=== PATIENT | female | born 1965 | race Caucasian/White ===

== ENCOUNTER 2023-05-09 12:05 | Outpatient (RCR) | payer BC, SELFPAY | END 2023-05-09 23:59 | disposition home or self-care (01) | LOC: RPT 12:05 | PROVIDERS: ATTENDING PHYSICIAN Internal Medicine Hematology & Oncology; FAMILY PHYSICIAN Neurological Surgery | DX: I97.2 Postmastectomy lymphedema syndrome (principal); C50.512 Malignant neoplasm of lower-outer quadrant of left female breast; Z79.811 Long term (current) use of aromatase inhibitors; Z73.6 Limitation of activities due to disability | CPT/HCPCS: 97140; 97535 ==

== ENCOUNTER → 2023-05-09 17:52 | Outpatient (REF) | payer BC, SELFPAY | LOC: RAD 17:52 | PROVIDERS: ATTENDING PHYSICIAN Internal Medicine Cardiovascular Disease; FAMILY PHYSICIAN Family Medicine | DX: R06.09 Other forms of dyspnea (principal); M79.89 Other specified soft tissue disorders | CPT/HCPCS: 93970 ==

== ENCOUNTER → 2023-05-10 12:12 | Outpatient (REF) | payer BC, OTHER, SELFPAY | LOC: RAD 12:12 | PROVIDERS: ATTENDING PHYSICIAN Internal Medicine Cardiovascular Disease; FAMILY PHYSICIAN Family Medicine | DX: R06.09 Other forms of dyspnea (principal); M79.89 Other specified soft tissue disorders | CPT/HCPCS: 71275; Q9967 ==

== ENCOUNTER 2023-05-15 07:25 | Day surgery (SDC) | payer BC, OTHER, SELFPAY ==
[2023-05-15] VITALS (10 sets, daily range): BP systolic 113–132; BP diastolic 58–75; BMI 27.7
[2023-05-15 07:59] LABS: Hematocrit 39.2 % (37.0-47.0); Hemoglobin 13.5 g/dL (12.0-16.0); Mean Corp Hgb Conc. 34.4 g/dL (33.0-37.0); Mean Corpuscular Hgb 30.7 pg (27.0-31.0); Mean Corpuscular Volume 89.1 fL (81.0-99.0); Mean Platelet Volume 8.7 fL (7.4-10.4); Platelet Count 173 10^3/uL (130-400); White Blood Cell Count 4.7 10^3/uL (4.8-10.8)
[2023-05-15] MEDS: NSS 219 ML IV (08:03)
[2023-05-15 08:16] LABS: ALT (SGPT) 24 U/L (0-35); AST (SGOT) 22 U/L (14-36); Albumin 4.5 g/dl (3.5-5.0); Alkaline Phosphatase 115 U/L (38-126); Blood Urea Nitrogen 24 mg/dl (7-17); Calcium 9.7 mg/dl (8.4-10.2); Carbon Dioxide 25 mmol/L (22-30); Chloride 107 mmol/L (98-107); Estimated Creatinine Clearance 85 ml/min; Glucose 120 mg/dl (70-99); Potassium 4.6 mmol/L (3.5-5.1); Sodium 138 mmol/L (135-145); Total Bilirubin 0.7 mg/dl (0.2-1.3); Total Protein 7.3 g/dl (6.3-8.2); eGFR > 60.00
[2023-05-15] MEDS: LOW STRENGTH ASPIRIN 81 MG PO (08:19)
[2023-05-15] MEDS: NSS 330 IV (10:17)
[2023-05-15] MEDS: TYLENOL 650 MG PO (10:17)
--- NOTE | 2023-05-15 10:37 | ITS.CL.CATH ---
[employer] - Catheterization
Cardiac Catheterization
Procedure Report:
LEFT HEART CATHETERIZATION
Date of Procedure: May 15, 2023
Referring: Dr. Meredith Hensley
PROCEDURES:
1. Left heart catheterization with coronary and single-plane left ventriculography
INDICATION: This is a 57-year-old female with a past medical history notable for familial hyperlipidemia in recent onset of exertional dyspnea over the past several weeks. Known lymphedema which has become more prominent. She has a history of
inappropriate sinus tachycardia. She has noticed more shortness of breath and palpitations. Pulmonary workup has been rather unrevealing and she is now referred for coronary angiography with vague chest discomfort and palpitations.
ACCESS: No right radial pulse. Ultrasound guidance was utilized and arterial access was obtained in the right common femoral artery using micropuncture technique and placement of a 6 Portuguese sheath
HEMODYNAMICS : (mmHg)
AO (s/d) : 117/67
LV (s/d) : 119/8
LVEDP : 17
CORONARY FINDINGS
DOMINANCE: Right
LEFT MAIN: Normal
LEFT ANTERIOR DESCENDING: The LAD arises normally from the left main and runs in the anterior interventricular groove. 2 small to medium caliber diagonal branches arise from the proximal LAD and appear widely patent. The second diagonal branch has
a 30% proximal stenosis. The LAD beyond the diagonal branch has minor irregularities but no high-grade focal obstructive stenosis
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 Small caliber vessel supplying a very small OM1 and small to medium caliber OM 2
RIGHT CORONARY ARTERY: The right coronary artery is a large-caliber dominant vessel with minor irregularities over its course
VENTRICULOGRAPHY: Left ventriculography is performed in an DOLL projection. The digital single-plane left ventricular ejection fraction is estimated at 50%. No regional wall motion abnormalities noted
RADIATION SUMMARY: Fluoro Time (min): 4, Dose (mGy): 288, DAP (Gy.cm2) : 24.6
Closure Device: 6 Portuguese Angio-Seal RFA
CONCLUSIONS
1. Nonobstructive coronary disease with stable coronary anatomy
2. Preserved left ventricular systolic function with a visually estimated ejection fraction of 50%
RECOMMENDATIONS
1. Continued medical therapy and risk modification
Copy to: Dr. Meredith Hensley
[2023-05-15] MEDS: ULTRAM 50 MG PO (13:01)
== END 2023-05-15 14:51 | disposition home or self-care (01) ==
LOC: CATH 07:25
PROVIDERS: ATTENDING PHYSICIAN Internal Medicine Interventional Cardiology; FAMILY PHYSICIAN Family Medicine
DX: I25.10 Atherosclerotic heart disease of native coronary artery without angina pectoris (principal); R00.2 Palpitations; R06.02 Shortness of breath; I10 Essential (primary) hypertension; E78.49 Other hyperlipidemia; I89.0 Lymphedema, not elsewhere classified; Z85.3 Personal history of malignant neoplasm of breast; Z86.73 Personal history of transient ischemic attack (TIA), and cerebral infarction without residual deficits; Z87.891 Personal history of nicotine dependence; Z79.82 Long term (current) use of aspirin
CPT/HCPCS: 80053; 85027; 93458; C1760; C1894; Q9967

== ENCOUNTER → 2023-06-02 07:18 | Outpatient (REF) | payer BC, SELFPAY | LOC: RCS 07:18 | PROVIDERS: ATTENDING PHYSICIAN Internal Medicine Cardiovascular Disease; FAMILY PHYSICIAN Family Medicine | DX: I25.10 Atherosclerotic heart disease of native coronary artery without angina pectoris (principal); R07.9 Chest pain, unspecified; T45.1X5D Adverse effect of antineoplastic and immunosuppressive drugs, subsequent encounter | CPT/HCPCS: 93306; 93356 ==

== ENCOUNTER → 2023-07-31 08:24 | Outpatient (REF) | payer BC, OTHER, SELFPAY | LOC: WDC 08:24 | PROVIDERS: ATTENDING PHYSICIAN Surgery; FAMILY PHYSICIAN Family Medicine | DX: R59.0 Localized enlarged lymph nodes (principal); N64.59 Other signs and symptoms in breast | CPT/HCPCS: 76642 ==